=== PATIENT | female | born 1990 | race Two or more races ===

== ENCOUNTER 2016-11-17 03:03 | Observation (INO) | payer BC ==
[~2016-11-17] VITALS: Ht 157.5 cm; Wt 68.2 kg
[2016-11-17] MEDS ORDERED: SODIUM CHLORIDE 0.9% 1,000ML IVBOLUS ONE (04:30)
[2016-11-17] MEDS ORDERED: CEFTRIAXONE PMX 1GM/50ML 50 ML IV ONE (04:30)
[2016-11-17] MEDS ORDERED: SODIUM CHLORIDE FLUSH 10ML SYR IVF ONE (04:30)
[2016-11-17 04:32] LABS: HEMATOCRIT 42.5 % (34.6-47.8); HEMOGLOBIN 14.3 g/dL (11.7-16.4); WHITE BLOOD COUNT 10.8 x10^3/uL (3.4-10)
[2016-11-17] MEDS ORDERED: CEFTRIAXONE PMX 1GM/50ML 50 ML ONE (04:35)
[2016-11-17 04:40] LABS: BLOOD UREA NITROGEN 6 mg/dL (7-18)
[2016-11-17] MEDS ORDERED: ONDANSETRON 2MG/ML, 2ML IVPush ONE (05:00)
[2016-11-17] MEDS ORDERED: MORPHINE SULFATE 4 MG/ML, 1ML IVPush PRN (05:00)
[2016-11-17] MEDS ORDERED: MORPHINE SULFATE 4 MG/ML, 1ML ONE (05:03)
[2016-11-17] MEDS ORDERED: ONDANSETRON 2MG/ML, 2ML ONE (05:03)
[2016-11-17] MEDS ORDERED: SODIUM CHLORIDE 0.9% 1,000 ML IV SCH (05:08)
[2016-11-17] MEDS ORDERED: HYDR-3240 PO (05:15)
[2016-11-17] MEDS ORDERED: PROMETHAZINE 25 MG/ML, 1ML IM PRN (05:30)
[2016-11-17] MEDS ORDERED: CEFTRIAXONE PMX 1GM/50ML 50 ML IV SCH (05:30)
[2016-11-17 06:47] VITALS: BP 114/70
[2016-11-17 07:24] VITALS: BP 109/69
[2016-11-17] MEDS: ACETAMINOPHEN 325 MG TABLET PO PRN ×2 (07:36→13:20)
[2016-11-17] MEDS ORDERED: DOCUSATE 100 MG CAPSULE PO SCH (11:00)
[2016-11-17] MEDS ORDERED: CEFD300C37 PO (12:49)
[2016-11-17 13:18] VITALS: BP 114/75
[2016-11-17 14:30] VITALS: BP 114/75
== END 2016-11-17 15:10 | disposition home or self-care (01) ==
LOC: ED 04:19 → INTOOBSV 05:06 → EDIP 05:06 → 4NOR 05:50
PROVIDERS: ADMIT Internal Medicine; ATTEND Internal Medicine
DX: O26.891 Other specified pregnancy related conditions, first trimester (principal); M54.5 Low back pain; O23.41 Unspecified infection of urinary tract in pregnancy, first trimester; O99.351 Diseases of the nervous system complicating pregnancy, first trimester; O99.281 Endocrine, nutritional and metabolic diseases complicating pregnancy, first trimester; O34.11 Maternal care for benign tumor of corpus uteri, first trimester; O25.11 Malnutrition in pregnancy, first trimester; O23.01 Infections of kidney in pregnancy, first trimester; E87.6 Hypokalemia; E87.1 Hypo-osmolality and hyponatremia; E44.1 Mild protein-calorie malnutrition; D25.1 Intramural leiomyoma of uterus; N20.1 Calculus of ureter; R10.2 Pelvic and perineal pain; G89.29 Other chronic pain; Z3A.12 12 weeks gestation of pregnancy; R17 Unspecified jaundice
CPT/HCPCS: 36415; 76770; 76801; 80048; 81001; 82040; 85025; 87086; 96361; 96365; 96375; 99285; G0378; J0696; J2405; J7030